=== PATIENT | male | born 1990 | race Hispanic/Latino ===

== ENCOUNTER → 2024-10-03 | Emergency (ER) | payer OTHER ==
[~2024-10-03] VITALS: Ht 167.6 cm; Wt 77.1 kg
[2024-10-03 17:46] VITALS: BP 115/71; PULSE 77; RESP 18; TEMP 98.3
--- NOTE | 2024-10-03 17:59 | ERN ---
ED Note History of Present Illness Stated Complaint: CHEST PAIN Chief Complaint: Chest Pain Time Seen by MD: 17:48 Time Seen by Midlevel: 17:48 Dictation: Mr. Atkins is a 34 year old gentleman with no reported chronic health issues who presented the emergency department for evaluation of chest pain. Reports nonradiating substernal chest pain which he rated 8/10 and accompanied by nausea and shortness of breath. His significant other states pain was so bad he was crying. He states he had a similar episode yesterday when he got too angry. He denies having fever, chills, cough, palpitations, edema, abdominal pain, pa in, diarrhea, dysuria, melena, hematochezia, and headache, or dizziness. He states he does not smooth cigarettes but does smoke marijuana. PCP: None Allergies: Coded Allergies: No Known Drug Allergies (Unverified Allergy, Unknown, 10/03/24) Past Medical History Past Medical History: No Pertinent History Surgical History: None PSYCH History: no pertinent psych hx Social History: Drugs (marijuana) RN Note Reviewed/Agreed w/PFSH: Yes Review of System Dictation REVIEW OF SYSTEMS: CONSTITUTIONAL: Patient denies fevers, chills, sweats and weight changes. EYES: Patient denies any visual symptoms. EARS, NOSE, AND THROAT: No difficulties with hearing. No symptoms of rhinitis or sore throat. CARDIOVASCULAR: Patient denies palpitations, orthopnea and paroxysmal nocturnal dyspnea. Reports nonradiating substernal chest dockery. RESPIRATORY: No dyspnea on exertion, no wheezing or cough. States he became short of breath when he was having chest pain. Rated pain 8/10. GI: No vomiting, diarrhea, constipation, abdominal pain, hematochezia or melena. Reported feeling nauseated when he was having chest pain. : No urinary hesitancy or dribbling. No nocturia or urinary frequency. No abnormal urethral discharge. MUSCULOSKELETAL: No myalgias or arthralgias. NEUROLOGIC: No chronic headaches, no seizures. Patient denies numbness, tingling or weakness. PSYCHIATRIC: Patient denies problems with mood disturbance. No problems with anxiety. ENDOCRINE: No excessive urination or excessive thirst. DERMATOLOGIC: Patient denies any rashes or skin changes. Initial Vital Sign VS Vital Signs Date Time Temp Pulse Resp B/P (MAP) Pulse Ox O2 Delivery O2 Flow Rate FiO2 10/03/24 17:46 98.2 77 18 115/71 99 Room Air Physical Exam Dictation Vital signs: Reviewed. Afebrile. Constitutional: Anxious. Cooperative/pleasant. Head/Face: Normocephalic, atraumatic. Eyes: Periorbital areas with no swelling, redness, or edema. Lids and lashes are normal. Conjunctival injection is present; states has been crying. Sclera anicteric. Pupils equal, round, reactive to light. ENT: Pinnas intact and no signs of trauma or erythema. Ear canals clear and no discharge. TMs no erythema. No nasal discharge or bleeding noted. Oropharynx with no exudate, redness, swelling, masses, exudates, or evidence of obstruction. Uvula midline. Mucous membranes moist. Neck: Trachea midline, no masses palpated, and no cervical lymphadenopathy. No swelling. Supple, full range of motion. Chest/Axilla: No tenderness, no crepitus, no paradoxical movement, no retractions. Cardiovascular: Regular rate, regular rhythm, no murmur, no gallops. Symmetric pulses. No peripheral edema. 12 Lead EKG reflects a sinus rhythm without ST elevation or depression. Normotensive. Chest pain resolved. Respiratory: Respirations even and unlabored. Lung sounds clear; no wheezes, rales or rhonchi. Room air SpO2 99% Gastrointestinal: Inspection is normal. No distention is appreciated. Bowel sounds are normal. No mass or organomegaly . Tenderness over the epigastrium. No rebound. No rigidity. No voluntary or involuntary guarding. No Tucker's sign. Neurological: Normal speech, gross motor function intact, gross sensory function intact. No focal weakness/Paresthesia. Musculoskeletal/Extremities: All extremities have full range of motion, no pain or tenderness on palpation. Symmetric pulses. Integumentary: Intact. Skin is normal color, warm and dry. Cap refill less than 2 seconds. Results (Laboratory/Radiology) Laboratory/Radiology Laboratory Tests Test 10/03/24 18:08 White Blood Count 8.3 K/uL (4.8-10.8) Red Blood Count 4.28 MIL/uL (4.50-6.20) L Hemoglobin 13.2 g/dL (14.0-18.0) L Hematocrit 39.6 % (42-54) L Mean Corpuscular Volume 92.5 fL (79-99) Mean Corpuscular Hemoglobin 30.8 pg (27.0-33.0) Mean Corpuscular Hemoglobin Concent 33.3 g/dL (32.0-36.0) Red Cell Distribution Width 13.0 % (11.0-15.5) Platelet Count 182 K/uL (130-400) Mean Platelet Volume 11.3 fL (7.5-10.5) H Immature Granulocyte % (Auto) 0.6 % (0-1) Neutrophils (%) (Auto) 58.2 % (40.0-77.0) Lymphocytes (%) (Auto) 31.3 % (21.0-51.0) Monocytes (%) (Auto) 8.9 % (3.0-13.0) Eosinophils (%) (Auto) 0.6 % (0.0-8.0) Basophils (%) (Auto) 0.4 % (0.0-5.0) Neutrophils # (Auto) 4.8 K/uL (1.8-7.7) Lymphocytes # (Auto) 2.6 K/uL (1.0-4.8) Monocytes # (Auto) 0.7 K/uL (0.1-1.0) Eosinophils # (Auto) 0.05 K/uL (0.00-0.70) Basophils # (Auto) 0.03 K/uL (0.00-0.20) Absolute Immature Granulocyte (auto 0.05 K/uL (0-1) Nucleated Red Blood Cells 0.0 % (0.0-0.19) Sodium Level 133 mmol/L (136-145) L Potassium Level 3.5 mmol/L (3.5-5.1) Chloride Level 98 mmol/L (101-111) L Carbon Dioxide Level 27 mmol/L (21-32) Blood Urea Nitrogen 16 mg/dL (7-18) Creatinine 1.0 mg/dL (0.5-1.3) Glomerular Filtration Rate Calc 102 mL/min (>90) Random Glucose 109 mg/dL (70-105) H Total Calcium 8.6 mg/dL (8.5-10.1) Troponin I High Sensitivity 18 ng/L (4-75) Lipase 48 U/L (16-77) Labs Reviewed?: Yes EKG Comment: EKG Interpretation: Time Reviewed: Ventricular rate: 72 bpm UT Interval: 162 ms QRS duration: [address] segment elevation or depression. Clinical impression: Sinus rhythm EKG Reviewed and interpreted by Dr. Justin Beverly X-RAY Comment: Patient left before x-ray was completed. ED Course ED Course Orders Procedure Category Date Status Time 12 Lead Ekg Tracing- EKG 10/03/24 Logged Technical 17:50 Cbc With Differential LAB 10/03/24 Complete 17:50 Basic Metabolic Panel LAB 10/03/24 Complete 17:50 Troponin I High LAB 10/03/24 Complete Sensitivity 17:50 Drug Screen Urine LAB 10/03/24 Logged 17:50 Chest 1vw RAD 10/03/24 Logged 17:50 Lipase LAB 10/03/24 Complete 17:50 Vital Signs Date Time Temp Pulse Resp B/P (MAP) Pulse Ox O2 Delivery O2 Flow Rate FiO2 10/03/24 17:46 98.2 77 18 115/71 99 Room Air Patient arrived chest pain-free. Vital signs stable. Twelve lead EKG reflects a sinus rhythm without ST elevation or depression. Laboratory findings as noted below. H and H are stable 14.2/39.6, Na/Cl 133/96, and glucose 109. Lipase not lipase is not elevated. Troponin negative. Patient did not stay for completion of workup did not received chest x-ray or urine drug screen. HEART Score Response (Comments) Value History: Moderate suspicion (+1) 1 EKG: Normal 0 Age: < 45yrs (0) 0 Risk Factors: No known risk factors (0) 0 Initial Troponin: Normal limit (0) 0 HEART Score Risk: Low Risk for MACE (1-3) Total 1 Medical Decision Making MDM Differential diagnosis: ACS, cholecystitis, anxiety reaction Patient left before completion of ED workup. Patient did not complete urine drug screen or chest x-ray. DX & DISP Disposition: AMA Departure Impression: Primary Impression: Patient left prior to completion of workup Additional Impression: Chest pain Condition: Stable Referrals: SELF,REFERRAL (PCP) PEDRITO GERMAN NP Oct 03, 2024 17:59
[2024-10-03 18:20] LABS: BASOPHILS # (AUTO) 0.03 K/uL (0.00-0.20); BASOPHILS % (AUTO) 0.4 % (0.0-5.0); EOSINOPHILS # (AUTO) 0.05 K/uL (0.00-0.70); EOSINOPHILS % (AUTO) 0.6 % (0.0-8.0); HEMATOCRIT 39.6 % (42-54); IMMATURE GRANULOCYTE ABSOLUTE 0.05 K/uL (0-1); LYMPHOCYTES # (AUTO) 2.6 K/uL (1.0-4.8); LYMPHOCYTES % (AUTO) 31.3 % (21.0-51.0); MEAN CORPUSCULAR HEMOGLOBIN 30.8 pg (27.0-33.0); MEAN CORPUSCULAR HGB CONC 33.3 g/dL (32.0-36.0); MEAN CORPUSCULAR VOLUME 92.5 fL (79-99); MONOCYTES # (AUTO) 0.7 K/uL (0.1-1.0); MONOCYTES % (AUTO) 8.9 % (3.0-13.0); NEUTROPHILS # (AUTO) 4.8 K/uL (1.8-7.7); NEUTROPHILS % (AUTO) 58.2 % (40.0-77.0); PLATELET COUNT (AUTO) 182 K/uL (130-400); RED BLOOD CELL COUNT(AUTO) 4.28 MIL/uL (4.50-6.20); WHITE BLOOD COUNT (AUTO) 8.3 K/uL (4.8-10.8)
[2024-10-03 18:33] LABS: POTASSIUM 3.5 mmol/L (3.5-5.1)
--- NOTE | 2024-10-03 20:00 | NUR ---
CALLED IN ER LOBBY, NO ANSWER
--- NOTE | 2024-10-03 20:08 | NUR ---
CALLED FOR BEDDING. NO ANSWER
--- NOTE | 2024-10-03 20:09 | NUR ---
PT CALLED. MADE NO CONTACT WITH STAFF ON DESIRE TO LEAVE. SPOKE WITH [place] CHARGE NURSE, PT NOT IN BACK ER
--- NOTE | 2024-10-04 06:56 | EKG ---
[facility] Test Date: 2024-10-03 Test Time: 17:53:34 Pat Name: FREDDY BALL Department: ED Room: Gender: M Licensed Massage Therapist: [facility] : 1990 Requested By: PEDRIOT GERMAN Order Number: [id number] Reading MD: Rock Bateman Measurements Intervals [place] Rate: 72 P: 42 DE: 162 QRS: 49 QRSD: 83 T: 40 QT: 371 QTc: 407 Interpretive Statements Sinus rhythm No previous ECG available for comparison Electronically Signed On 10-04-2024 13:28:01 CDT by Rock Bateman Please click the below link to view image of tracing.
== END ==
LOC: EDH 17:43
DX: R07.89 Other chest pain (principal); F12.90 Cannabis use, unspecified, uncomplicated
CPT/HCPCS: 36415; 80048; 83690; 84484; 85025; 93005; 99284